=== PATIENT | male | born 1970 ===

== ENCOUNTER 2021-01-29 10:38 | Day surgery (SDC) | payer OTHER ==
[~2021-01-29 10:38] MED LIST: AVAPRO150 MG PO; FARXIGA10 MG PO; FENOFIBRA PO; GEMFIBROZIL600 MG PO; JANUMET XR 1001 EACH PO; VITAMIN D PO
[2021-01-29] MEDS ORDERED: PERCOCET 5-3251 EACH PO (17:17)
== END 2021-01-29 19:25 | disposition home or self-care (01) ==
LOC: CIR.AMB 10:38
PROVIDERS: ATTEND Surgery
DX: N52.03 Combined arterial insufficiency and corporo-venous occlusive erectile dysfunction (principal); Z20.822 Contact with and (suspected) exposure to COVID-19
CPT/HCPCS: 54405; 54112; C1813